=== PATIENT | male | born 1960 | race American Indian/Alaskan Native ===

== ENCOUNTER 2017-05-04 22:07 | Emergency (ER) | payer MEDICAID ==
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
[2017-05-05] MEDS ORDERED: NORCO 5/325 PO ONE (00:02)
[2017-05-05 00:52] VITALS: BP 94/62
== END 2017-05-05 03:27 | disposition home or self-care (01) ==
LOC: ED 22:07
DX: T83.010A Breakdown (mechanical) of cystostomy catheter, initial encounter (principal); Z72.0 Tobacco use
CPT/HCPCS: 51702